=== PATIENT | female | born 1975 | race Two or more races ===

== ENCOUNTER 2024-07-03 06:39 | Inpatient (IN) | payer BC ==
[~2024-07-03] VITALS: Ht 154.9 cm; Wt 74.5 kg
[2024-07-03 07:23] LABS: Basophils # (auto) 0 10 ^3/uL (0-0.2); Basophils % (auto) 0.5 % (0.0-2.0); Eosinophils # (auto) 0.2 10 ^3/uL (0-0.8); Eosinophils % (auto) 3.1 % (0.0-7.0); Hematocrit 44.1 % (36.0-46.0); Hemoglobin 15.4 g/dL (12.2-16.2); Lymphocytes % (auto) 38.2 % (10.0-50.0); Mean Corpuscular Hemoglobin 30.6 pg (28.0-32.0); Mean Corpuscular Hgb Conc. 34.9 g/dL (32.0-36.0); Mean Corpuscular Volume 87.7 fL (80.0-100.0); Monocytes # (auto) 0.5 10 ^3/uL (0-1.3); Monocytes % (auto) 6.2 % (0.0-12.0); Neutrophils # (auto) 4.1 10 ^3/uL (1.6-8.6); Nucleated Red Blood Cells % 0.1 %; Platelet Count (auto) 304 10^3/uL (140-450); Red Blood Cells 5.04 10^6/uL (4.0-5.20); White Blood Cell 7.8 10^3/uL (4.4-10.8)
[2024-07-03 07:35] LABS: Chloride 103 mmol/L (98-107); Potassium 4.3 mmol/L (3.5-5.1); Sodium 137 mmol/L (136-145)
[2024-07-03 07:36] LABS: Anion Gap 11 (5-15); Carbon Dioxide 23 mmol/L (20-30)
[2024-07-03 07:37] LABS: Calcium 9.7 mg/dL (8.7-10.4)
[2024-07-03 07:42] LABS: BUN/Creatinine Ratio 11.7 (10.0-20.0); Blood Urea Nitrogen 9 mg/dL (9-23); Glucose 99 mg/dL (74-106)
[2024-07-03 07:47] LABS: Urine Bacteria FEW /hpf (None Seen); Urine Blood TRACE /uL (Negative); Urine Clarity Turbid (Clear); Urine Color Yellow (Yellow); Urine Mucus FEW (None Seen); Urine Protein, UAD TRACE (Negative); Urine Urobilinogen Normal (Negative); Urine WBC 4 /hpf (0 - 5); Urine pH 5.5 (5.0-9.0)
[2024-07-03] MEDS ORDERED: NITROGLYCERIN 0.4 MG SL TAB SL PRN (12:00)
[2024-07-03] MEDS: SODIUM CHLORIDE 0.9% 1,000 ML IV SCH (12:15)
[2024-07-03 13:05] LABS: Albumin 4.5 g/dL (3.2-4.8)
[2024-07-03] MEDS: PANTOPRAZOLE 40 MG/10 ML VIAL INJ IV ONE (14:25)
[2024-07-03] MEDS: cefTRIAXone 1GM/50ML D5W 50 ML IV ONE (14:25)
[2024-07-03] MEDS: ONDANSETRON HCL 4 MG/2 ML VIAL IV PRN (18:29)
[2024-07-03] MEDS: MORPHINE SULFATE INJ 2 MG/ml SYRG IV PRN (18:30)
[2024-07-03 21:48] VITALS: BP 126/69; PULSE 57; RESP 18; TEMP 98.1; O2SAT 96
[2024-07-04] VITALS (8 sets, daily range): BP systolic 94–116; BP diastolic 51–68; PULSE 61–68; RESP 14–22; TEMP 97.9–98.7; O2SAT 94–98
[2024-07-04] MEDS ORDERED: ROSU10TA64 PO (01:55)
[2024-07-04] MEDS ORDERED: TRAZ300T13 PO (01:55)
[2024-07-04 06:15] LABS: Basophils # (auto) 0 10 ^3/uL (0-0.2); Basophils % (auto) 0.5 % (0.0-2.0); Eosinophils # (auto) 0.2 10 ^3/uL (0-0.8); Eosinophils % (auto) 3.1 % (0.0-7.0); Hematocrit 39.8 % (36.0-46.0); Hemoglobin 13.7 g/dL (12.2-16.2); Mean Corpuscular Hemoglobin 30.2 pg (28.0-32.0); Mean Corpuscular Hgb Conc. 34.4 g/dL (32.0-36.0); Mean Corpuscular Volume 87.8 fL (80.0-100.0); Monocytes # (auto) 0.5 10 ^3/uL (0-1.3); Monocytes % (auto) 6.5 % (0.0-12.0); Neutrophils % (auto) 51.9 % (37.0-80.0); Nucleated Red Blood Cells % 0.2 %; Platelet Count (auto) 276 10^3/uL (140-450); Red Blood Cells 4.54 10^6/uL (4.0-5.20); Red Cell Distribution Width 13.9 % (11.8-14.3); White Blood Cell 7.8 10^3/uL (4.4-10.8)
[2024-07-04 06:37] LABS: Alanine Aminotransferase 20 U/L (7-40); Albumin 3.7 g/dL (3.2-4.8); Alkaline Phosphatase 81 U/L (46-116); Anion Gap 8 (5-15); Aspartate Aminotransferase 18 U/L (13-40); BUN/Creatinine Ratio 15.9 (10.0-20.0); Bilirubin, Total 0.4 mg/dL (0.2-1.0); Blood Urea Nitrogen 11 mg/dL (9-23); Carbon Dioxide 23 mmol/L (20-30); Chloride 106 mmol/L (98-107); Glucose 83 mg/dL (74-106); Potassium 4.1 mmol/L (3.5-5.1); Sodium 137 mmol/L (136-145)
[2024-07-04 06:53] LABS: Calcium 8.6 mg/dL (8.7-10.4)
[2024-07-04] MEDS: cefTRIAXone 1GM/50ML D5W 50 ML IV SCH (09:16)
[2024-07-04] MEDS: PANTOPRAZOLE 40 MG/10 ML VIAL INJ IV SCH (09:51)
[2024-07-04] MEDS: SODIUM CHLORIDE 0.9% 1,000 ML IV SCH (11:45)
[2024-07-04] MEDS: buPROPion HCL 75 MG TAB PO SCH (18:47)
[2024-07-04] MEDS: traZODone HCL 50 MG TAB PO SCH (22:00)
[2024-07-05] VITALS (9 sets, daily range): BP systolic 100–122; BP diastolic 44–81; PULSE 48–79; RESP 14–20; TEMP 97.8–98.2; O2SAT 95–99
[2024-07-05] MEDS: fentaNYL CITRATE 100 MCG/2 ML VL ONE (06:01)
[2024-07-05 06:10] LABS: Basophils # (auto) 0 10 ^3/uL (0-0.2); Basophils % (auto) 0.5 % (0.0-2.0); Eosinophils # (auto) 0.2 10 ^3/uL (0-0.8); Eosinophils % (auto) 3.1 % (0.0-7.0); Hematocrit 39.5 % (36.0-46.0); Hemoglobin 13.7 g/dL (12.2-16.2); Lymphocytes # (auto) 2.8 10 ^3/uL (0.4-5.4); Lymphocytes % (auto) 38.8 % (10.0-50.0); Mean Corpuscular Hemoglobin 30.4 pg (28.0-32.0); Mean Corpuscular Hgb Conc. 34.8 g/dL (32.0-36.0); Mean Corpuscular Volume 87.5 fL (80.0-100.0); Monocytes # (auto) 0.5 10 ^3/uL (0-1.3); Monocytes % (auto) 6.3 % (0.0-12.0); Neutrophils # (auto) 3.7 10 ^3/uL (1.6-8.6); Neutrophils % (auto) 51.3 % (37.0-80.0); Nucleated Red Blood Cells % 0.1 %; Platelet Count (auto) 273 10^3/uL (140-450); Red Blood Cells 4.51 10^6/uL (4.0-5.20); White Blood Cell 7.2 10^3/uL (4.4-10.8)
[2024-07-05 06:25] LABS: % Iron Saturation 41.1 % (15-50)
[2024-07-05 06:31] LABS: Alanine Aminotransferase 20 U/L (7-40); Alkaline Phosphatase 84 U/L (46-116); Anion Gap 7 (5-15); BUN/Creatinine Ratio 10.4 (10.0-20.0); Blood Urea Nitrogen 7 mg/dL (9-23); Calcium 9.3 mg/dL (8.7-10.4); Carbon Dioxide 24 mmol/L (20-30); Chloride 104 mmol/L (98-107); Glucose 87 mg/dL (74-106); Potassium 3.9 mmol/L (3.5-5.1); Sodium 135 mmol/L (136-145)
[2024-07-05 06:32] LABS: Aspartate Aminotransferase 18 U/L (13-40); Bilirubin, Total 0.3 mg/dL (0.2-1.0); Total Protein 6.5 g/dL (5.7-8.2)
[2024-07-05 07:14] LABS: Erythrocyte Sedimentation Rate 8 mm/hr (0-20)
[2024-07-05] MEDS: SERTRALINE HCL 50 MG TAB PO SCH (10:00)
[2024-07-05] MEDS ORDERED: SODIUM CHLORIDE LOCK 10 ML ONE (12:23)
[2024-07-05] MEDS: LIDOCAINE VISCOUS 2% 15ML UD ONE (15:56)
[2024-07-05] MEDS: diphenhdrAMINE HCL 50 MG/1 ML VL ONE (15:58)
[2024-07-05] MEDS: MIDAZOLAM HCL 5 MG/ML-1ML VIAL ONE (15:58)
[2024-07-05] MEDS: DOCUSATE SOD 100 MG CAP PO PRN (21:09)
[2024-07-05] MEDS: SUCRALFATE 1 GM/10 ML ORAL SUSP GT SCH (21:58)
[2024-07-06 01:00] VITALS: BP 110/57; PULSE 64; RESP 14; TEMP 98.2; O2SAT 95
[2024-07-06 05:00] VITALS: BP 127/57; PULSE 65; RESP 13; TEMP 97.9; O2SAT 97
[2024-07-06 08:29] VITALS: BP 124/70; PULSE 60; RESP 20; TEMP 97.7; O2SAT 97
[2024-07-06 11:38] VITALS: BP 123/68; PULSE 65; RESP 20; TEMP 98.8; O2SAT 100
[2024-07-06 13:37] LABS: Basophils # (auto) 0 10 ^3/uL (0-0.2); Basophils % (auto) 0.5 % (0.0-2.0); Eosinophils # (auto) 0.2 10 ^3/uL (0-0.8); Eosinophils % (auto) 2.5 % (0.0-7.0); Hematocrit 40.7 % (36.0-46.0); Lymphocytes # (auto) 2.1 10 ^3/uL (0.4-5.4); Lymphocytes % (auto) 32.9 % (10.0-50.0); Mean Corpuscular Hemoglobin 30.5 pg (28.0-32.0); Mean Corpuscular Hgb Conc. 34.5 g/dL (32.0-36.0); Mean Corpuscular Volume 88.3 fL (80.0-100.0); Monocytes # (auto) 0.4 10 ^3/uL (0-1.3); Monocytes % (auto) 6.9 % (0.0-12.0); Neutrophils # (auto) 3.6 10 ^3/uL (1.6-8.6); Neutrophils % (auto) 57.2 % (37.0-80.0); Nucleated Red Blood Cells % 0.2 %; Platelet Count (auto) 288 10^3/uL (140-450); Red Blood Cells 4.61 10^6/uL (4.0-5.20); Red Cell Distribution Width 14.1 % (11.8-14.3); White Blood Cell 6.4 10^3/uL (4.4-10.8)
[2024-07-06 13:47] VITALS: BP 123/68; PULSE 65; RESP 20; TEMP 98.8; O2SAT 100
[2024-07-06 13:50] LABS: Chloride 105 mmol/L (98-107); Potassium 4.2 mmol/L (3.5-5.1); Sodium 135 mmol/L (136-145)
[2024-07-06 13:51] LABS: Anion Gap 5 (5-15); Calcium 9.5 mg/dL (8.7-10.4); Carbon Dioxide 25 mmol/L (20-30)
[2024-07-06] MEDS ORDERED: SERT50TA PO (13:54)
[2024-07-06 13:56] LABS: BUN/Creatinine Ratio 9.7 (10.0-20.0); Blood Urea Nitrogen 7 mg/dL (9-23); Glucose 128 mg/dL (74-106)
== END 2024-07-06 15:43 | disposition home or self-care (01) | DRG 392 ==
LOC: ER 06:39 → OVERFLOW 12:01 → CENTRAL 21:48
PROVIDERS: ADMIT Internal Medicine; ATTEND Internal Medicine
PROC: 0DB68ZX Excision of Stomach, Via Natural or Artificial Opening Endoscopic, Diagnostic (ICD-10-PCS; 2024-07-05)
PROC: 0DB98ZX Excision of Duodenum, Via Natural or Artificial Opening Endoscopic, Diagnostic (ICD-10-PCS; principal; 2024-07-05 15:50)
DX: K29.70 Gastritis, unspecified, without bleeding (principal); N30.00 Acute cystitis without hematuria; K29.90 Gastroduodenitis, unspecified, without bleeding; K29.80 Duodenitis without bleeding; E78.5 Hyperlipidemia, unspecified; N83.202 Unspecified ovarian cyst, left side; E66.9 Obesity, unspecified; K44.9 Diaphragmatic hernia without obstruction or gangrene; Z85.3 Personal history of malignant neoplasm of breast; Z68.31 Body mass index [BMI] 31.0-31.9, adult; Z82.49 Family history of ischemic heart disease and other diseases of the circulatory system; Z90.13 Acquired absence of bilateral breasts and nipples; Z90.710 Acquired absence of both cervix and uterus; Z83.3 Family history of diabetes mellitus
CPT/HCPCS: 36415; 74176; 76856; 80048; 80053; 81001; 81025; 82040; 82728; 82977; 83540; 83550; 83690; 84075; 84450; 84460; 85025; 85652; 87086; 99291; G0378; J2250; J2405; J2470